=== PATIENT | male | born 1990 | race Two or more races ===

== ENCOUNTER 2019-02-05 20:14 | Inpatient (IN) | payer BC ==
[~2019-02-05] VITALS: Ht 165.1 cm; Wt 99.3 kg
--- NOTE | 2019-02-05 20:32 | NUR ---
ED Nurse Note: Walk-in patient complaints of left face pain r/t infected molar.
[2019-02-05 20:34] VITALS: BP 124/76
[2019-02-05] MEDS ORDERED: Ampicillin/Sulbactam Sod 3 GM in NS 110 ML IVPB ONE (20:45)
[2019-02-05] MEDS ORDERED: Lidocaine 1% 10mg/ml/EPI 0.01mg/ml 20ml INJ ONE (20:45)
--- NOTE | 2019-02-05 20:45 | Emergency Room Report ---
History of Present Illness General Chief Complaint: Toothache Source: Patient (Kevin Sarabia MD) Present Illness HPI Patient is a 28-year-old male brought in by self after increased left-sided facial swelling. Patient had recent increased pain to his left upper tooth. He noticed increased swelling to his gums on the left side. He denies any fever. He had been taking clindamycin without any improvement. Patient noticed increased swelling and discomfort to his cheek.Patient had been recently seen by a dentist and was started on oral clindamycin. Patient stated that he had taken approximately 6pills he noticed having increased facial swelling. Reports having increased facial pain.Patient noticed discomfort in the left side of his face for several days. (Kevin Sarabia MD) Allergies: Coded Allergies: No Known Allergies (Unverified , 02/05/19) Patient History Past Medical History: see triage record Reviewed Nursing Documentation: PMH: Agreed; PSxH: Agreed (Kevin Sarabia MD) Nursing Documentation-PMH Past Medical History: No Stated History (Kevin Sarabia MD) Review of Systems All Other Systems: negative except mentioned in HPI (Kevin Sarabia MD) Physical Exam Vital Signs Date Time Temp Pulse Resp B/P (MAP) Pulse Ox O2 Delivery O2 Flow Rate FiO2 02/05/19 20:22 98.2 79 18 95 Room Air 02/05/19 20:34 124/76 Sp02 EP Interpretation: reviewed, normal General Appearance: normal inspection, well appearing, no apparent distress, alert, GCS 15, obese Head: atraumatic ENT: normal ENT inspection, hearing grossly normal, normal voice, other - left facial swelling over maxilla. Neck: normal inspection, full range of motion, supple, no bony tend Respiratory: normal inspection, lungs clear, normal breath sounds, no respiratory distress, no retraction, no wheezing Cardiovascular #1: regular rate, rhythm, no edema Gastrointestinal: normal inspection, normal bowel sounds, non tender, soft, no guarding, no hernia Genitourinary: no CVA tenderness Musculoskeletal: normal inspection, back normal, normal range of motion Neurologic: normal inspection, alert, oriented x3, responsive, remote operations producer III-XII nml as tested, speech normal Psychiatric: normal inspection, judgement/insight normal, mood/affect normal Skin: normal inspection, normal color, no rash (Kevin Sarabia MD) Medical Decision Making Diagnostic Impression: Primary Impression: Facial cellulitis Additional Impression: Dental infection ER Course Patient presented for left-sided facial swelling. Differential diagnosis include is not limited to abscess, cellulitis, sinusitis among others. Because of complexity of patient's case laboratory testing and imaging studies were ordered. Patient's laboratory testing was notable for markedly elevated white blood count. There is noted to be a gingival lesion with fluctuance. Patient was consented for incision and drainage. This was anesthetized with approximately 4 cc of lidocaine. Subsequently patient had a small amount of bloody drainage from the area of fluctuance without any evident purulent drainage. Patient was given IV Unasyn. CT of the facial bones with IV contrast was ordered due to patient's facial swelling to evaluate for possible abscess.Patient will likely be admitted to a hospital for further management of facial cellulitis. Labs Test 02/05/19 20:56 White Blood Count 20.3 K/UL (4.8-10.8) Red Blood Count 5.38 M/UL (4.70-6.10) Hemoglobin 16.6 G/DL (14.2-18.0) Hematocrit 46.6 % (42.0-52.0) Mean Corpuscular Volume 87 FL (80-99) Mean Corpuscular Hemoglobin 30.8 PG (27.0-31.0) Mean Corpuscular Hemoglobin Concent 35.5 G/DL (32.0-36.0) Red Cell Distribution Width 10.9 % (11.6-14.8) Platelet Count 236 K/UL (150-450) Mean Platelet Volume 6.5 FL (6.5-10.1) Neutrophils (%) (Auto) % (45.0-75.0) Lymphocytes (%) (Auto) % (20.0-45.0) Monocytes (%) (Auto) % (1.0-10.0) Eosinophils (%) (Auto) % (0.0-3.0) Basophils (%) (Auto) % (0.0-2.0) Differential Total Cells Counted 100 Neutrophils % (Manual) 70 % (45-75) Lymphocytes % (Manual) 15 % (20-45) Monocytes % (Manual) 15 % (1-10) Eosinophils % (Manual) 0 % (0-3) Basophils % (Manual) 0 % (0-2) Band Neutrophils 0 % (0-8) Platelet Estimate Adequate Platelet Morphology Normal Red Blood Cell Morphology Normal Sodium Level 139 MMOL/L (136-145) Potassium Level 3.5 MMOL/L (3.5-5.1) Chloride Level 102 MMOL/L (98-107) Carbon Dioxide Level 27 MMOL/L (21-32) Anion Gap 10 mmol/L (5-15) Blood Urea Nitrogen 7 mg/dL (7-18) Creatinine 1.0 MG/DL (0.55-1.30) Estimat Glomerular Filtration Rate > 60 mL/min (>60) Glucose Level 94 MG/DL (74-106) Calcium Level 9.2 MG/DL (8.5-10.1) Total Bilirubin 0.9 MG/DL (0.2-1.0) Aspartate Amino Transf (AST/SGOT) 13 U/L (15-37) Alanine Aminotransferase (ALT/SGPT) 28 U/L (12-78) Alkaline Phosphatase 71 U/L (46-116) Total Protein 8.1 G/DL (6.4-8.2) Albumin 4.1 G/DL (3.4-5.0) Globulin 4.0 g/dL Albumin/Globulin Ratio 1.0 (1.0-2.7) (Kevin Sarabia MD) ER Course Please see above note. Initially Dr. Mukherjee declined the patient (not talking directly with me). Discussed with Chris (concrete wall grinder operator) who is communicating with Dr. Mukherjee. 22:[address] Falk who wants patient to be admitted here. Discussed with Dr. Horne. Admit med. (Reg Lopez MD) CT/MRI/US Diagnostic Results CT/MRI/US Diagnostic Results : Imaging Test Ordered: maxilofacial Impression IMPRESSION: Extensive left-sided facial cellulitis, possibly related to an erupted or eroded periapical abscess in the left second maxillary molar tooth. (Reg Lopez MD) Last Vital Signs Date Time Temp Pulse Resp B/P (MAP) Pulse Ox O2 Delivery O2 Flow Rate FiO2 02/05/19 20:34 98.2 89 18 124/76 95 Room Air Status: improved (Kevin Sarabia MD) Disposition: ADMITTED INPATIENT Condition: Stable Scripts Amoxicillin/Potassium Clav 875-125* (AUGMENTIN 875-125 TABLET*) 1 Each Tablet 1 TAB ORAL TWICE A DAY, #20 TAB Prov: Andrew Horne MD 02/08/19 Referrals: [facility],REFERRING (PCP) Kevin Sarabia MD February 05, 2019 20:45 Reg Lopez MD February 05, 2019 23:00
--- NOTE | 2019-02-05 21:00 | NUR ---
ED Nurse Note: Patient signed consent form for I&D of left upper gum abscess.
[2019-02-05 21:16] LABS: HEMATOCRIT 46.6 % (42.0-52.0); HEMOGLOBIN 16.6 G/DL (14.2-18.0); MEAN CORPUSCULAR VOLUME 87 FL (80-99); PLATELET COUNT 236 K/UL (150-450); RED BLOOD COUNT 5.38 M/UL (4.70-6.10); RED CELL DISTRIBUTION WIDTH 10.9 % (11.6-14.8); WHITE BLOOD COUNT 20.3 K/UL (4.8-10.8)
[2019-02-05 21:20] LABS: ANION GAP 10 mmol/L (5-15); BLOOD UREA NITROGEN 7 mg/dL (7-18); CALCIUM 9.2 MG/DL (8.5-10.1); CARBON DIOXIDE 27 MMOL/L (21-32); CHLORIDE 102 MMOL/L (98-107); POTASSIUM 3.5 MMOL/L (3.5-5.1); SODIUM 139 MMOL/L (136-145)
[2019-02-05 21:25] LABS: ALANINE AMINOTRANSFERASE 28 U/L (12-78); ALBUMIN 4.1 G/DL (3.4-5.0); ALKALINE PHOSPHATASE 71 U/L (46-116); ASPARTATE AMINO TRANSFERASE 13 U/L (15-37); BILIRUBIN,TOTAL 0.9 MG/DL (0.2-1.0)
--- NOTE | 2019-02-05 21:25 | NUR ---
ED Nurse Note: Patient tolerated procedure well.
[2019-02-05] MEDS ORDERED: Isovue-300 100ml vial INJ PRN (21:30)
--- NOTE | 2019-02-05 22:45 | Diagnostic Imaging Report ---
EXAM: CT Maxillofacial Without And With Intravenous Contrast CLINICAL HISTORY: PAIN TECHNIQUE: Axial computed tomography images of the face without and with intravenous contrast. CTDI is 28.19 mGy and DLP is 607 mGy-cm. One or more of the following dose reduction techniques were used: automated exposure control, adjustment of the mA and/or kV according to patient size, use of iterative reconstruction technique. COMPARISON: none FINDINGS: Bones/joints: No acute fracture. Soft tissues: Left-sided soft tissue swelling and stranding from the level of the mental protuberance of the jaw through the left periorbital soft tissues is noted. No rim-enhancing fluid collection to suggest a soft tissue abscess. Orbits: Unremarkable. Sinuses: Unremarkable. No air-fluid levels. Dental: There is extensive streak artifact from dental amalgam but there is periapical lucency without a cortical erosion of the maxilla present around the left second maxillary tooth. Diffuse mucosal thickening in the left maxillary sinus is present. There is no protrusion of dental roots into the floor of the maxillary sinuses. Oral cavity: Gas and soft tissue masslike configuration is present against the left-sided buccal mucosa of the oral cavity. IMPRESSION: Extensive left-sided facial cellulitis, possibly related to an erupted or eroded periapical abscess in the left second maxillary molar tooth.
[2019-02-05] MEDS ORDERED: Morphine Sulfate 4mg/ml Inj (IV USE ONLY) IVP ONE (23:30)
[2019-02-06] VITALS: BP 120/72
--- NOTE | 2019-02-06 00:12 | NUR ---
ED Nurse Note: Report called into Sarina RN prior to transport. Patient transported to floor by RN.
--- NOTE | 2019-02-06 00:30 | NUR ---
NURSE NOTES: PATIENT ADMITTED FROM ER VIA W/C BY TECH. REPORT RECEIVED FROM CAMPAIGN DEVELOPER JUDY. ADM DX OF FACIAL ABSCESS UNDER DR PRINGLE. LAC IV INTACT, PATENT. ORIENTED PATIENT TO SURROUNDINGS, BELONGINGS CHECKED. BED IN LOWEST POSITION, LOCKED, ALARMS ON. CALL LIGHT IN REACH. BY BEDSIDE.
[2019-02-06] MEDS ORDERED: Morphine Sulfate 2mg/ml Inj(IV/IM USE ONLY) IVP PRN (00:45)
[2019-02-06] MEDS: D5NS 1,000 ML IV SCH ×2 (01:00→14:42)
[2019-02-06 04:00] VITALS: BP 125/75
[2019-02-06 06:18] LABS: BASOPHILS % (AUTO) 0.8 % (0.0-2.0); EOSINOPHILS % (AUTO) 1.1 % (0.0-3.0); HEMATOCRIT 45.8 % (42.0-52.0); LYMPHOCYTES % (AUTO) 24.4 % (20.0-45.0); MEAN CORPUSCULAR VOLUME 90 FL (80-99); MONOCYTES % (AUTO) 13.8 % (1.0-10.0); NEUTROPHILS % (AUTO) 59.8 % (45.0-75.0); PLATELET COUNT 234 K/UL (150-450); RED BLOOD COUNT 5.07 M/UL (4.70-6.10); RED CELL DISTRIBUTION WIDTH 11.4 % (11.6-14.8); WHITE BLOOD COUNT 12.9 K/UL (4.8-10.8)
[2019-02-06 06:27] LABS: ANION GAP 7 mmol/L (5-15); BLOOD UREA NITROGEN 8 mg/dL (7-18); CALCIUM 9.1 MG/DL (8.5-10.1); CARBON DIOXIDE 28 MMOL/L (21-32); CHLORIDE 105 MMOL/L (98-107); CREATININE 0.8 MG/DL (0.55-1.30); POTASSIUM 3.6 MMOL/L (3.5-5.1); SODIUM 140 MMOL/L (136-145)
--- NOTE | 2019-02-06 07:14 | NUR ---
HAND-OFF: Report given to Roxy GATES.
--- NOTE | 2019-02-06 07:36 | NUR ---
NURSE NOTES: received patient asleep, no discomfort noted. In room air, receiving IVF through LAC access, no infiltration noted. Bed locked at the lowest position possible, call light within easy reach, siderails up x3 for safety. by the bedside. Will continue to monitor patient and follow up with the plan of care.
[2019-02-06 08:00] VITALS: BP 134/77
[2019-02-06] MEDS ORDERED: Ampicillin/Sulbactam Sod 3 GM in NS 110 ML IVPB SCH (09:00)
[2019-02-06 12:00] VITALS: BP 123/66
--- NOTE | 2019-02-06 12:31 | NUR ---
CASE MANAGEMENT: INITIAL REVIEW 02/05/2019 29 YO M PRESENTED TO ED FROM HOME CC: FACIAL SWELLING PMHx: DENIES SI:FACIAL ABSCESS. T 98.2 HR 79 RR 18 B/P 124/76 SATS 95% ON RA WBC 20.3 AST 13 IS:UNASYN IV X1 LIDOCAINE INJ X1 CT FACIAL BONES IMPRESSION: Extensive left-sided facial cellulitis, possibly related to an erupted or eroded periapical abscess in the left second maxillary molar tooth. PATIENT ADMITTED TO MED/SURG @ 2216 DCP: PATIENT TO BE DISCHARGED TO HOME ONCE MEDICALLY CLEARED. PLAN OF CARE: IV ANTIBx 02/06/2019 SI:FACIAL ABSCESS. T 99.2 HR 68 RR 17 B/P 123/66 SATS 98% ON RA WBC 12.9 SI;IVF @ 75 mL/HR UNASYN IV Q12H MED/SURG STATUS
[2019-02-06] MEDS ORDERED: Tubing IV Secondary IV ONE (15:47)
[2019-02-06] MEDS ORDERED: D5NS 1000ml IV ONE (15:47)
[2019-02-06 16:00] VITALS: BP 110/66
--- NOTE | 2019-02-06 18:15 | History & Physical ---
History and Physical History & Physicial #[id number] ental abscess pre diabetes Constance Perry DO February 06, 2019 18:15
[2019-02-06] MEDS: Ampicillin/Sulbactam Sod 3 GM in NS 110 ML IVPB SCH ×2 (18:45→23:46)
--- NOTE | 2019-02-06 19:03 | NUR ---
HAND-OFF: Report given to KODY De.
[2019-02-06 20:00] VITALS: BP 114/61
--- NOTE | 2019-02-06 20:00 | NUR ---
NURSE NOTES: PATIENT IN BED. ON RA, NO SOB, NO ACUTE DISTRESS. IV ON RH INTACT, PATENT RUNNING FLUIDS. BED IN LOWEST POSITION, LOCKED, ALARMS ON. CALL LIGHT I REACH.
--- NOTE | 2019-02-06 21:15 | History and Physical Report ---
DATE OF ADMISSION: 02/05/2019 REASON FOR ADMISSION: Dental abscess. HISTORY OF PRESENT ILLNESS: This 29-year-old gentleman stated that he had increased left facial swelling. He was eating hard candy on Thursday and two days later had severe swelling. He saw his dentist, who stated that he had a cracked tooth and a dental abscess, given antibiotics and pain medications, but it continued to increase. He is unable to eat. He came into the emergency room, was started on IV antibiotics and IV fluids. Facial bone CT was performed showing extensive left facial cellulitis related to an erupted or eroded periapical abscess in the left secondary maxillary molar tooth. PAST MEDICAL HISTORY: Otherwise, he is prediabetic. Otherwise, no other medical problems. ALLERGIES: No allergies. PAST SURGICAL HISTORY: No surgical history. FAMILY HISTORY: No family history of significance. REVIEW OF SYSTEMS: Previously negative for chest pain, shortness of breath, nausea, vomiting, diarrhea, fever, or chills. PHYSICAL EXAMINATION: VITAL SIGNS: He is currently afebrile. His T-max is 99.4 degrees. Pulse 62, respirations 17, and blood pressure 110/66. HEENT: Normocephalic and atraumatic. He has got still significant left facial swelling. No visual changes are noted. No external erythema or warmth that is palpable or tender to palpation. Oropharynx is moist. LUNGS: Clear. HEART: Regular rate and rhythm without murmur. ABDOMEN: Soft and nontender. Positive bowel sounds. EXTREMITIES: No edema. NEUROLOGIC: No focal neurologic deficit. LABORATORY AND DIAGNOSTIC DATA: His laboratory values, he had white count of 20.3 yesterday, now 12.9. Hemoglobin stable at 16. Sodium 140, potassium 3.6, chloride 105, bicarbonate 28, BUN 8, creatinine 0.8, and glucose 94. CT images, as previously noted. ASSESSMENT: Left dental abscess with facial cellulitis, prediabetic. PLAN FOR THE PATIENT: He is on IV antibiotics, which we will continue at this time. O2 to maintain saturations greater than 92%. DVT prophylaxis. We will ask Infectious Disease to see the patient and follow up imaging studies as needed and surgical evaluation if the patient is not responding appropriately to medical therapy. We will continue to follow the patient for remainder of his hospital stay. Constance Perry D.O. DR: Ok JOB#: [id number] CC:
[2019-02-07] VITALS (7 sets, daily range): BP systolic 105–131; BP diastolic 60–76
[2019-02-07] MEDS: D5NS 1,000 ML IV SCH ×2 (03:45→17:34)
[2019-02-07] MEDS: Ampicillin/Sulbactam Sod 3 GM in NS 110 ML IVPB SCH ×4 (05:35→23:50)
[2019-02-07 06:01] LABS: BASOPHILS % (AUTO) 0.8 % (0.0-2.0); EOSINOPHILS % (AUTO) 1.7 % (0.0-3.0); HEMATOCRIT 46.4 % (42.0-52.0); HEMOGLOBIN 16.2 G/DL (14.2-18.0); LYMPHOCYTES % (AUTO) 21.3 % (20.0-45.0); MEAN CORPUSCULAR VOLUME 91 FL (80-99); MONOCYTES % (AUTO) 11.3 % (1.0-10.0); NEUTROPHILS % (AUTO) 64.8 % (45.0-75.0); PLATELET COUNT 248 K/UL (150-450); RED BLOOD COUNT 5.12 M/UL (4.70-6.10); RED CELL DISTRIBUTION WIDTH 11.5 % (11.6-14.8); WHITE BLOOD COUNT 11.5 K/UL (4.8-10.8)
[2019-02-07 06:17] LABS: ANION GAP 9 mmol/L (5-15); BLOOD UREA NITROGEN 8 mg/dL (7-18); CALCIUM 9.1 MG/DL (8.5-10.1); CARBON DIOXIDE 27 MMOL/L (21-32); CHLORIDE 104 MMOL/L (98-107); CREATININE 0.9 MG/DL (0.55-1.30); POTASSIUM 3.6 MMOL/L (3.5-5.1); SODIUM 140 MMOL/L (136-145)
--- NOTE | 2019-02-07 07:13 | NUR ---
HAND-OFF: Report given to Roxy GATES.
--- NOTE | 2019-02-07 08:03 | NUR ---
NURSE NOTES: received pt asleep, no sign of discomfort. by the bedside. Pt receives IVF through right hand access, no sign of infiltration noted. Bed locked at the lowest position possible, call light within easy reach, siderails up x3. Will continue to monitor pt and follow up with the plan of care.
--- NOTE | 2019-02-07 10:00 | NUR ---
*-* NO INSURANCE INFORMATION INT [facility] TO SEND CLINICALS *-*
--- NOTE | 2019-02-07 11:51 | Infectious Diseases Prog Note ---
Assessment/Plan Assessment/Plan Full consult dictated: A) 1) left facial cellulitis 2) dental abscess 3) leukocytosis P) 1) unasyn 2) s/p I/D in ER 3) monitor labs 4) thank you Subjective Allergies: Coded Allergies: No Known Allergies (Unverified , 02/05/19) Objective Vital Signs Last 24 Hour Vital Signs Date Time Temp Pulse Resp B/P (MAP) Pulse Ox O2 Delivery O2 Flow Rate FiO2 02/07/19 09:00 Room Air 02/07/19 08:00 98.7 69 19 131/76 (94) 96 02/07/19 04:00 98.4 53 18 118/66 (83) 98 02/07/19 00:00 98.5 59 18 115/64 (81) 97 02/06/19 21:00 Room Air 02/06/19 20:00 98.2 68 18 114/61 (78) 96 02/06/19 16:00 98.2 62 17 110/66 (81) 98 02/06/19 12:00 99.2 68 17 123/66 (85) 98 Height (Feet): 5 Height (Inches): 5.00 Weight (Pounds): 219 Laboratory Tests Test 02/07/19 04:50 White Blood Count 11.5 K/UL (4.8-10.8) H Red Blood Count 5.12 M/UL (4.70-6.10) Hemoglobin 16.2 G/DL (14.2-18.0) Hematocrit 46.4 % (42.0-52.0) Mean Corpuscular Volume 91 FL (80-99) Mean Corpuscular Hemoglobin 31.6 PG (27.0-31.0) H Mean Corpuscular Hemoglobin Concent 34.8 G/DL (32.0-36.0) Red Cell Distribution Width 11.5 % (11.6-14.8) L Platelet Count 248 K/UL (150-450) Mean Platelet Volume 8.0 FL (6.5-10.1) Neutrophils (%) (Auto) 64.8 % (45.0-75.0) Lymphocytes (%) (Auto) 21.3 % (20.0-45.0) Monocytes (%) (Auto) 11.3 % (1.0-10.0) H Eosinophils (%) (Auto) 1.7 % (0.0-3.0) Basophils (%) (Auto) 0.8 % (0.0-2.0) Sodium Level 140 MMOL/L (136-145) Potassium Level 3.6 MMOL/L (3.5-5.1) Chloride Level 104 MMOL/L (98-107) Carbon Dioxide Level 27 MMOL/L (21-32) Anion Gap 9 mmol/L (5-15) Blood Urea Nitrogen 8 mg/dL (7-18) Creatinine 0.9 MG/DL (0.55-1.30) Estimat Glomerular Filtration Rate > 60 mL/min (>60) Glucose Level 118 MG/DL (74-106) H Calcium Level 9.1 MG/DL (8.5-10.1) Current Medications Medications (Trade) Dose Ordered Sig/[place] Route PRN Reason Start Time Stop Time Status Last Admin Dose Admin Ampicillin Sodium/ Sulbactam Sodium 3 gm/Sodium Chloride 110 ml @ 220 mls/hr Q6HR IVPB 02/06/19 18:30 02/13/19 18:29 02/07/19 05:35 Dextrose/Sodium Chloride 1,000 ml @ 75 mls/hr [id number] IV 02/06/19 00:45 03/08/19 00:44 02/07/19 03:45 Iopamidol (Isovue-300 100ml) 100 ml NOW PRN INJ Radiology Procedure 02/05/19 21:30 02/07/19 21:30 Morphine Sulfate (Morphine Sulfate) 2 mg Q4H PRN IVP For Pain 02/06/19 00:45 02/13/19 00:44 02/06/19 08:04 Ondansetron HCl (Zofran) 4 mg Q4H PRN IVP Nausea & Vomiting 02/06/19 00:45 03/08/19 00:44 Melanie Salas MD February 07, 2019 11:51
--- NOTE | 2019-02-07 13:11 | General Progress Note ---
Assessment/Plan Assessment/Plan: 1) left facial cellulitis, improved 2) dental abscess 3) leukocytosis, improving cont abx WBC down possible dc tomorrow on oral abx Subjective Constitutional: Reports: no symptoms HEENT: Reports: mouth pain - improving Allergies: Coded Allergies: No Known Allergies (Unverified , 02/05/19) Objective Last 24 Hour Vital Signs Date Time Temp Pulse Resp B/P (MAP) Pulse Ox O2 Delivery O2 Flow Rate FiO2 02/07/19 09:00 Room Air 02/07/19 08:00 98.7 69 19 131/76 (94) 96 02/07/19 04:00 98.4 53 18 118/66 (83) 98 02/07/19 00:00 98.5 59 18 115/64 (81) 97 02/06/19 21:00 Room Air 02/06/19 20:00 98.2 68 18 114/61 (78) 96 02/06/19 16:00 98.2 62 17 110/66 (81) 98 Intake and Output 02/06/19 02/07/19 19:00 07:00 Intake Total 2997.5 ml Balance 2997.5 ml Intake Oral 2400 ml IV Total 597.5 ml # Voids 3 # Bowel Movements 1 Laboratory Tests 02/07/19 04:50: White Blood Count 11.5H, Red Blood Count 5.12, Hemoglobin 16.2, Hematocrit 46.4 , Mean Corpuscular Volume 91, Mean Corpuscular Hemoglobin 31.6H, Mean Corpuscular Hemoglobin Concent 34.8, Red Cell Distribution Width 11.5L, Platelet Count 248, Mean Platelet Volume 8.0, Neutrophils (%) (Auto) 64.8, Lymphocytes (%) (Auto) 21.3, Monocytes (%) (Auto) 11.3H, Eosinophils (%) (Auto) 1.7, Basophils (%) (Auto) 0.8, Sodium Level 140, Potassium Level 3.6, Chloride Level 104, Carbon Dioxide Level 27, Anion Gap 9, Blood Urea Nitrogen 8, Creatinine 0.9, Estimat Glomerular Filtration Rate > 60, Glucose Level 118H, Calcium Level 9.1 Height (Feet): 5 Height (Inches): 5.00 Weight (Pounds): 219 General Appearance: no apparent distress EENT: other - decreased swelling, L maxilla Andrew Horne MD February 07, 2019 13:11
--- NOTE | 2019-02-07 14:27 | NUR ---
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
--- NOTE | 2019-02-07 19:30 | NUR ---
NURSE NOTES: Patient received in bed, aaox4, denies pain or discomfort at this time. IV infusing on RH, IV intact and patent. is at bedside. Needs attended. Call light in reach, instructed to call for assistance, verbalized understanding. Will continue to monitor.
--- NOTE | 2019-02-07 19:30 | NUR ---
HAND-OFF: Report given to KODY Lincoln.
--- NOTE | 2019-02-07 23:00 | Consultation ---
DATE OF CONSULTATION: 02/07/2019 INFECTIOUS DISEASE CONSULTATION CONSULTING PHYSICIAN: Melanie Salas M.D. ATTENDING PHYSICIAN: Andrew Horne M.D. REFERRING PHYSICIAN: Constance Perry M.D. REASON FOR CONSULTATION: Left facial cellulitis, dental abscess, possible facial abscess, leukocytosis, possible sepsis. CHIEF COMPLAINT: The patient's chief complaint coming in to the hospital is left facial cellulitis and abscess. HISTORY OF PRESENT ILLNESS: This is a very pleasant 29-year-old male, who has a history of what sounds like a broken tooth. I believe, he went to the dentist recently. He said on Thursday he ate candy and noticed severe swelling. When he went to the dentist, he was noted to have a cracked tooth and dental abscess. He was given oral antibiotics and pain medications. The patient has now left facial swelling and presented to [place] with left facial swelling. A CT scan of the facial bones showed the following. It showed findings consistent with extensive left-sided facial cellulitis, possibly related to erupted or eroded periapical abscess. It sounds like in the emergency room, the patient had a drainage of an abscess. Upon reviewing the ER notes, the patient had gingival lesion with fluctuance and the patient consented for incision and drainage, which was done and per the report, there was a small amount of bloody drainage with the area fluctuance. The patient said there was pus, but I did not see that in the the ER. Infectious Disease consultation is requested for antibiotic management. The patient is currently on Unasyn 3 grams intravenous q.12 hours. The patient also had a significant leukocytosis, unclear if the patient had early sepsis. However, the patient has no fevers and does not look septic currently. REVIEW OF SYSTEMS: CONSTITUTIONAL: He has no head pain or neck pain. No mention of night sweats. He has left facial swelling and pain. HEAD AND NECK: No neck stiffness. No headache or change in vision. CARDIAC: No chest pain. GASTROINTESTINAL: No nausea, vomiting, or diarrhea. GENITOURINARY: No dysuria or frequency. PULMONARY: No congestion or shortness of breath. SKIN: No rash or itching. EXTREMITY: No extremity pain. NEUROLOGIC: No seizures. PAST MEDICAL HISTORY: The patient's past medical history looks like otherwise negative. No history of diabetes or hypertension mentioned. He is what looks like possibly prediabetic, but no other history of hypertension or confirmed diabetes or cancer. ALLERGIES: No known drug allergies. SOCIAL HISTORY: There is no mention of smoking, alcohol, or drug abuse. FAMILY HISTORY: Noncontributory. MEDICATIONS: Upon reviewing the MAR, the patient is on the following medications. He is on morphine. He is on Unasyn 3 grams intravenous every 6 hours. He is on Zofran. He is on morphine. He is on IV fluids. He is on iopamidol. Outside medications were noted and reconciliated. He was on pain medications. He was on oral antibiotics as an outpatient. PHYSICAL EXAMINATION: VITAL SIGNS: Temperature is 98.7, pulse rate 69, respiratory rate 19, blood pressure 131/76, and saturation is 96% on room air. GENERAL: Alert and responsive, in no acute distress. He is alert and oriented x3. HEAD AND NECK: Oral exam, no thrush. Eye exam, no icterus. Normocephalic. Neck is supple. He has left facial swelling consistent with cellulitis with some tenderness, but no obvious fluctuance. LUNGS: Clear bilaterally. No rhonchi or rales. HEART: Regular. No obvious gallop or murmur. ABDOMEN: Soft. Positive bowel sounds. Nontender. SKIN: No rash. MUSCULOSKELETAL: No effusion. Legs without cellulitis. PERIPHERAL VASCULAR: No cyanosis. NEUROLOGIC: Intact. He is alert and oriented x3. LINE SITES: Without phlebitis. He has a peripheral line. GENITOURINARY: No Baeza. No CVA tenderness. No septic arthritis. LABORATORY DATA: Laboratory data is as follows. White count is 11.5 and hemoglobin 16.2. White count on admission was 20.3 and hemoglobin 16.6. Creatinine is 0.9. IMAGING: Facial bone CT showed findings consistent with extensive left-sided facial cellulitis, possibly related to erupted or eroded periapical abscess, second maxillary molar tooth. ASSESSMENT AND PLAN: 1. The patient is a 29-year-old male, who comes in with left facial cellulitis, what sounds like dental abscess. It is unclear if he had facial abscess, but the CT scan showed no facial abscess, it just showed left facial cellulitis with likely dental abscess or some other dental process. He has history of cracked tooth and recently went to the dentist. He was given oral antibiotics, however, failed on oral antibiotics. The patient has what sounds like there was a drainage or procedure done in the emergency room. Clinically, the patient says he feels better. He is currently on Unasyn. We will continue Unasyn 3 grams intravenous every 6 hours to cover polymicrobial infection involved in the dental karla. Most likely, it is an anaerobic species and possible Strep species causing the left facial cellulitis. There is no evidence of parotitis at this time on the CT scan. Continue Unasyn 3 grams intravenous q.6 hours for left facial cellulitis, possible abscess, and dental abscess, and elevated white count. It is unclear if the patient has early sepsis, however, currently does not look septic. Monitor leukocytosis. Watch the patient clinically. Seems to have improved on Unasyn for now. 2. Prediabetes per the records. 3. No history of hypertension. No confirmed diabetes or cancer. 4. Social history is negative. 5. Allergies are negative. 6. Family history is noncontributory. 7. MAR is noted. 8. Case was discussed with RN. 9. Case was discussed with the patient. 10. Case communicated with Dr. Perry, who is covering Dr. Horne yesterday. 11. I will follow. Melanie Salas M.D. DR: AARON JOB#: [id number] CC:
[2019-02-08] VITALS: BP 109/65
[2019-02-08 04:00] VITALS: BP 102/60
[2019-02-08] MEDS: D5NS 1,000 ML IV SCH (05:29)
[2019-02-08] MEDS: Ampicillin/Sulbactam Sod 3 GM in NS 110 ML IVPB SCH ×2 (05:29→11:51)
[2019-02-08 06:49] LABS: EOSINOPHILS % (AUTO) 2.6 % (0.0-3.0); HEMATOCRIT 45.5 % (42.0-52.0); HEMOGLOBIN 15.9 G/DL (14.2-18.0); LYMPHOCYTES % (AUTO) 27.4 % (20.0-45.0); MEAN CORPUSCULAR VOLUME 90 FL (80-99); MONOCYTES % (AUTO) 10.4 % (1.0-10.0); NEUTROPHILS % (AUTO) 58.5 % (45.0-75.0); PLATELET COUNT 270 K/UL (150-450); RED BLOOD COUNT 5.03 M/UL (4.70-6.10); RED CELL DISTRIBUTION WIDTH 11.6 % (11.6-14.8); WHITE BLOOD COUNT 10.8 K/UL (4.8-10.8)
[2019-02-08 06:51] LABS: ANION GAP 11 mmol/L (5-15); BLOOD UREA NITROGEN 10 mg/dL (7-18); CALCIUM 9.1 MG/DL (8.5-10.1); CARBON DIOXIDE 25 MMOL/L (21-32); CHLORIDE 107 MMOL/L (98-107); CREATININE 0.8 MG/DL (0.55-1.30); POTASSIUM 3.7 MMOL/L (3.5-5.1); SODIUM 143 MMOL/L (136-145)
--- NOTE | 2019-02-08 07:20 | NUR ---
HAND-OFF: Report given to Ramila GATES.
--- NOTE | 2019-02-08 07:55 | NUR ---
NURSE NOTES: Patient is alert and oriented x4. Patient is on room air. No s/s of discomfort. Bed is locked, in lowest position, and call light is within reach. Will continue to monitor.
[2019-02-08 08:00] VITALS: BP 121/70
[2019-02-08 12:00] VITALS: BP 112/66
[2019-02-08] MEDS ORDERED: AUGMENTIN 875-1 EAC1 ORAL (12:59)
--- NOTE | 2019-02-08 13:01 | General Progress Note ---
Assessment/Plan Assessment/Plan: 1) left facial cellulitis, improved 2) dental abscess 3) leukocytosis, improving dc on Augmentin see dentist disc w RN, ID Subjective Allergies: Coded Allergies: No Known Allergies (Unverified , 02/05/19) Objective Last 24 Hour Vital Signs Date Time Temp Pulse Resp B/P (MAP) Pulse Ox O2 Delivery O2 Flow Rate FiO2 02/08/19 08:30 Room Air 02/08/19 08:00 97.9 60 18 121/70 (87) 98 02/08/19 04:00 98.0 60 20 102/60 (74) 100 02/08/19 00:00 98.4 61 20 109/65 (80) 98 02/07/19 21:00 Room Air 02/07/19 20:03 98.2 64 18 118/66 (83) 99 02/07/19 16:00 98.2 57 18 114/60 (78) 97 Intake and Output 02/07/19 02/08/19 19:00 07:00 Intake Total 860 ml 3115 ml Balance 860 ml 3115 ml Intake Oral 1000 ml IV Total 860 ml 1135 ml Other 980 ml # Voids 3 Laboratory Tests 02/08/19 05:45: White Blood Count 10.8, Red Blood Count 5.03, Hemoglobin 15.9, Hematocrit 45.5, Mean Corpuscular Volume 90, Mean Corpuscular Hemoglobin 31.6H, Mean Corpuscular Hemoglobin Concent 34.9, Red Cell Distribution Width 11.6, Platelet Count 270, Mean Platelet Volume 7.5, Neutrophils (%) (Auto) 58.5, Lymphocytes (%) (Auto) 27.4, Monocytes (%) (Auto) 10.4H, Eosinophils (%) (Auto) 2.6, Basophils (%) ( Auto) 1.0, Sodium Level 143, Potassium Level 3.7, Chloride Level 107, Carbon Dioxide Level 25, Anion Gap 11, Blood Urea Nitrogen 10, Creatinine 0.8, Estimat Glomerular Filtration Rate > 60, Glucose Level 94, Calcium Level 9.1 Height (Feet): 5 Height (Inches): 5.00 Weight (Pounds): 219 Andrew Horne MD February 08, 2019 13:01
--- NOTE | 2019-02-08 15:12 | NUR ---
NURSE NOTES: Patient is discharged Home via private vehicle. Belongings reviewed and accounted for. Discharge instructions given to patient. Prescription filled at [facility] and medications given to patient. IV removed. ID bracelet removed. Patient accompanied by family member and RN to lobby. Patient stable upon discharge.
--- NOTE | 2019-02-09 14:01 | Discharge Summary ---
Discharge Summary Discharge Summary _ DATE OF ADMISSION: 02/05/2019 DATE OF DISCHARGE: 02/08/2019 DISCHARGED BY: Dr. Horne REASON FOR ADMISSION: 29 years old male with past medical history of breathing no other medical history presented for evaluation of left facial swelling. Patient was eating hard candy on Thursday and 2 days later had severe sweating patient saw the dentist who stated that patient had a cracked tooth and dental abscess was given antibiotics and pain management however the pain continued to increase. Patient was unable to eat. He came to emergency department started on the IV fluids and empiric antibiotic. Facial bone CT showed extensive left facial cellulitis related to be adopted or eroded periapical abscess in the left secondary maxillary molar teeth Facial bone CT was performed showing extensive left facial cellulitis related to an erupted or eroded periapical abscess in the left secondary maxillary molar tooth. In the emergency department laboratory work-up revealed markedly marked leukocytosis with WBC 20.3. On physical exam noted gingival lesion with fluctuation. Patient was consented for incision and drainage. Patient subsequently undergone incision and drainage which revealed small amount of bloody drainage from the area of fluctuance without any evident purulent discharge. Patient status post Iinciision and dariange which was done in the emergency department. Patient was started on empiric antibiotics. CT of the facial bones was ordered given to evaluate for possible abscess. Further management. Patient subsequently admitted for CONSULTANTS: ID specialist [facility] COURSE: Patient admitted to medical surgical floor. ID consult was requested. Antibiotics provided as per ID specialist recommendation. Leukocytosis resolved, no fevers. IV Unasyn changed to Augmentin to complete antibiotic treatment as outpatient for additional 10 days. Pain management was addressed. Supportive care provided. Patient clinically staizleid and was ready for discharge and to follow-up as outpatient. FINAL DIAGNOSES: Left dental abscess Facial cellulitis due to dental abscess DISCHARGE MEDICATIONS: See Medication Reconciliation list. DISCHARGE INSTRUCTIONS: Patient was discharged home . Follow up with primary care provider in one week. I have been assigned to dictate discharge summary for this account. I was not involved in the patient's management. Luna Law NP February 09, 2019 14:01
== END 2019-02-08 15:11 | disposition home or self-care (01) | DRG 158 ==
LOC: EMR 20:41 → 4E 22:16 → EDBEDREQ 23:23
DX: K04.7 Periapical abscess without sinus (principal); L03.211 Cellulitis of face; R73.03 Prediabetes
CPT/HCPCS: 36415; 70488; 80048; 80053; 82962; 85007; 85025; 96365; 96375; 99285; J2405